=== PATIENT | female | born 1975 | race Hispanic/Latino ===

== ENCOUNTER → 2022-08-19 | Day surgery (SDC) | payer BC ==
[2022-08-17 16:24] LABS: BASOPHILS % 0.3 % (0.0-1.0); EOSINOPHILS % 0.3 % (0.0-6.0); HEMATOCRIT 36.2 % (34.2-44.1); HEMOGLOBIN 11.4 g/dL (12.0-16.0); LYMPHOCYTES # (AUTO) 1.3 (1.0-3.2); LYMPHOCYTES % 11.4 % (18.0-39.1); MEAN CORPUSCULAR HEMOGLOBIN 25.3 pg (28-32); MEAN CORPUSCULAR HGB CONC 31.5 g/dL (31-35); MEAN CORPUSCULAR VOLUME 80.4 fL (81-99); MONOCYTES # (AUTO) 0.5 (0.2-0.8); MONOCYTES % 4.5 % (4.4-11.3); NEUTROPHILS # (AUTO) 9.7 (2.1-6.9); NEUTROPHILS % 82.9 % (38.7-80.0); PLATELET COUNT 193 x10e3/uL (140-360); RED CELL DISTRIBUTION WIDTH 15.6 % (11.7-14.4)
[2022-08-17 16:35] LABS: INR 0.87; PROTHROMBIN TIME 12.1 seconds (11.9-14.5)
[2022-08-17 16:36] LABS: PARTIAL THROMBOPLASTIN TIME 27.5 seconds (23.8-35.5)
[2022-08-17 16:42] LABS: CALCIUM 9.9 mg/dL (8.4-10.2); CREATININE, SERUM 0.68 mg/dL (0.57-1.11)
[~2022-08-19] MED LIST: ATORVASTATIN CA20 MG PO; BIOFLEX TABLET1 EACH; BUPIVACAINE HCL 0.5% INJ 30 ML VIAL INJ ONE; CALCIUM; DEXAMETHASONE SOD PHOS INJ 4 MG/ML SDV ONE; FENTANYL CITRATE/PF 100MCG/2 ML INJ ONE; HYDROCODON-ACE1 EA12 PO; IRON; KETOROLAC TROMETHAMINE 30 MG/ML VIAL ONE; LIDOCAINE HCL 2% LOCAL INJ 5 ML SDV VIAL INJ ONE; MAGNESIUM; MIDAZOLAM HCL 2 MG/2 ML VIAL ONE; OMEPRAZOLE40 MG PO; ONDANSETRON HCL INJ 2MG/ML 2ML 2 MG/ML VIAL ONE; POVIDONE IODINE 0.05% 0.05 % ML PO ONE; PREDNISONE10 MG PO; PROPOFOL IV EMULSION 10 MG/ML 20 ML VIAL ONE; SEVOFLURANE INHAL SOLN 250 ML PEN BTL ONE; VITAMIN C1000 MG PO; VITAMIN D; Z.0.CIPRO750 MG PO; Z.0.PREDNISONE20 MG PO; [UNRECOGNIZED DRUG - OTHER] PO
[2022-08-19 10:20] VITALS: BP 105/72
== END | disposition home or self-care (01) ==
LOC: OR 06:18
PROVIDERS: ATTEND Neurological Surgery
DX: G56.01 Carpal tunnel syndrome, right upper limb (principal); E78.5 Hyperlipidemia, unspecified; I10 Essential (primary) hypertension; K21.9 Gastro-esophageal reflux disease without esophagitis; Z71.82 Exercise counseling; Z71.3 Dietary counseling and surveillance; Z01.810 Encounter for preprocedural cardiovascular examination; Z01.812 Encounter for preprocedural laboratory examination; Z01.818 Encounter for other preprocedural examination; Z79.899 Other long term (current) drug therapy
CPT/HCPCS: 36415; 64721; 71046; 80048; 81025; 85025; 85610; 85730; 86850; 86900; 93005; J0690; J1100; J1885; J2001; J2250; J2405; J2704; J3010

== ENCOUNTER → 2024-01-12 | Day surgery (SDC) | payer BC ==
[2024-01-10 14:11] LABS: BASOPHILS % 0.4 % (0.0-1.0); EOSINOPHILS # (AUTO) 0.1 (0.0-0.4); EOSINOPHILS % 1.3 % (0.0-6.0); HEMATOCRIT 35.7 % (34.2-44.1); HEMOGLOBIN 11.4 g/dL (12.0-16.0); LYMPHOCYTES # (AUTO) 1.5 (1.0-3.2); LYMPHOCYTES % 20.5 % (18.0-39.1); MEAN CORPUSCULAR HEMOGLOBIN 28.1 pg (28-32); MEAN CORPUSCULAR HGB CONC 31.9 g/dL (31-35); MEAN CORPUSCULAR VOLUME 88.1 fL (81-99); MONOCYTES # (AUTO) 0.3 (0.2-0.8); MONOCYTES % 3.6 % (4.4-11.3); NEUTROPHILS # (AUTO) 5.3 (2.1-6.9); NEUTROPHILS % 73.8 % (38.7-80.0); PLATELET COUNT 290 x10e3/uL (140-360); RED BLOOD COUNT 4.05 x10e6/uL (3.6-5.1); RED CELL DISTRIBUTION WIDTH 14.2 % (11.7-14.4); WHITE BLOOD COUNT 7.17 x10e3/uL (4.8-10.8)
[2024-01-10 14:32] LABS: ALBUMIN 3.7 g/dL (3.5-5.0); ALBUMIN/GLOBULIN RATIO 1.4 (0.8-2.0); ANION GAP 12.3 mmol/L (8-16); BILIRUBIN,TOTAL 0.3 mg/dL (0.2-1.2); CALCIUM 8.7 mg/dL (8.4-10.2); CREATININE, SERUM 0.71 mg/dL (0.57-1.11); POTASSIUM 4.3 mmol/L (3.5-5.1); TOTAL PROTEIN 6.4 g/dL (6.5-8.1)
[~2024-01-12] MED LIST changes: +ACETAMINOPHEN 1000 MG/100 ML IV ONE; -BIOFLEX TABLET1 EACH; +BIOFLEX TABLET1 EACH PO; +BUPIVACAINE 0.5%/EPI 30 ML SDV INJ ONE; -BUPIVACAINE HCL 0.5% INJ 30 ML VIAL INJ ONE; +CALTRATE PLUS1 EACH PO; +CELEBREX200 MG PO; +CENTRUM ADULTS1 EACH PO; +CEPACOL SORE THROAT LOZENGES PO ONE; +GLIMEPIRIDE2 MG PO; -KETOROLAC TROMETHAMINE 30 MG/ML VIAL ONE; +LISINOPRIL5 MG PO; -MAGNESIUM; +MAGNESIUM PO; -MIDAZOLAM HCL 2 MG/2 ML VIAL ONE; -POVIDONE IODINE 0.05% 0.05 % ML PO ONE; +ROCURONIUM BROMIDE 10 MG/ML 5ML VIAL IV ONE; +SUCCINYLCHOLINE CHLORIDE 20 MG/ML 10ML VIAL ONE; +VITAMIN D3125 MCG PO; +ZETIA10 MG PO; +ZINC50 M2 PO
[2024-01-12] MEDS: LACTATED RINGER'S 1,000 ML ONE (09:57)
[2024-01-12] MEDS: FENTANYL CITRATE/PF 100MCG/2 ML INJ ONE (13:32)
[2024-01-12] MEDS: HYDROCODONE/APAP 7.5MG-325MG 1 EA TAB ONE (14:02)
[2024-01-12] MEDS: CEPACOL SORE THROAT LOZENGES PO ONE (14:35)
[2024-01-12 14:40] VITALS: BP 115/65; PULSE 77; RESP 18; O2SAT 99
== END | disposition home or self-care (01) ==
LOC: OR 09:17
PROVIDERS: ATTEND Surgery
DX: K80.10 Calculus of gallbladder with chronic cholecystitis without obstruction (principal); K82.8 Other specified diseases of gallbladder; K76.0 Fatty (change of) liver, not elsewhere classified; I10 Essential (primary) hypertension; E11.9 Type 2 diabetes mellitus without complications; K21.9 Gastro-esophageal reflux disease without esophagitis; M06.9 Rheumatoid arthritis, unspecified; Z01.810 Encounter for preprocedural cardiovascular examination; Z01.812 Encounter for preprocedural laboratory examination; Z79.84 Long term (current) use of oral hypoglycemic drugs; Z79.899 Other long term (current) drug therapy
CPT/HCPCS: 36415; 47562; 80053; 85025; 88304; 93005; C1766; J0131; J0330; J1100; J2001; J2405; J2704; J3010; J7121